=== PATIENT | male | born 1940 | race Hispanic/Latino ===

== ENCOUNTER 2021-08-01 15:47 | Emergency (ER) | payer MEDICARE ==
[~2021-08-01 15:47] MED LIST: AMLO-257 PO; CARV25TA77 PO; FURO40TA5 PO; GLIP2.5T2 PO; SIMV80TA91 PO; SPIR25TA6 PO; TAMS0.4C32 PO; WARF-57 PO
[2021-08-01 17:29] LABS: BASOPHILS % (AUTO) 0.5 % (0.0-5.0); EOSINOPHILS % (AUTO) 0.9 % (0.0-8.0); HEMATOCRIT 40.8 % (42-54); LYMPHOCYTES % (AUTO) 18.5 % (21.0-51.0); MEAN CORPUSCULAR HEMOGLOBIN 29.4 pg (27.0-33.0); MEAN CORPUSCULAR HGB CONC 32.6 g/dL (32.0-36.0); MEAN CORPUSCULAR VOLUME 90.1 fL (79-99); MONOCYTES % (AUTO) 11.5 % (3.0-13.0); NEUTROPHILS % (AUTO) 68.2 % (40.0-77.0); PLATELET COUNT (AUTO) 276 K/uL (130-400); RED BLOOD CELL COUNT(AUTO) 4.53 MIL/uL (4.50-6.20); RED CELL DISTRIBUTION WIDTH 12.2 % (11.0-15.5); WHITE BLOOD COUNT (AUTO) 7.9 K/uL (4.8-10.8)
[2021-08-01 17:42] LABS: CREATININE 1.4 mg/dL (0.5-1.5); POTASSIUM 3.7 mmol/L (3.5-5.1)
[2021-08-01 17:47] LABS: ALBUMIN 2.6 g/dL (3.5-5.0); BILIRUBIN,TOTAL 1.2 mg/dL (0.2-1.0); TOTAL PROTEIN, SERUM 7.4 g/dL (6.0-8.3); URIC ACID 9.1 mg/dL (2.6-7.2)
[2021-08-01] MEDS ORDERED: ACETAMINOPHEN WITH CODEINE 1 TAB TAB PO ONE (18:00)
[2021-08-01] MEDS ORDERED: ACET1TAB25 PO (18:52)
[2021-08-01 19:00] VITALS: BP 125/71
[2021-08-03] MEDS ORDERED: APIX5TAB PO (00:55)
[2021-08-03] MEDS ORDERED: TAMS-1 PO (00:55)
[2021-08-03] MEDS ORDERED: CARV12.511 PO (00:55)
[2021-08-03] MEDS ORDERED: FURO80TA87 PO (00:55)
== END 2021-08-01 20:08 | disposition home or self-care (01) ==
LOC: EDH 15:51
DX: S80.01XA Contusion of right knee, initial encounter (principal); M10.061 Idiopathic gout, right knee; M25.571 Pain in right ankle and joints of right foot; I11.0 Hypertensive heart disease with heart failure; E11.9 Type 2 diabetes mellitus without complications; E78.00 Pure hypercholesterolemia, unspecified; Z87.891 Personal history of nicotine dependence; Z79.84 Long term (current) use of oral hypoglycemic drugs; Z79.01 Long term (current) use of anticoagulants; Z79.899 Other long term (current) drug therapy; W01.0XXA Fall on same level from slipping, tripping and stumbling without subsequent striking against object, initial encounter; Y93.89 Activity, other specified; Y92.89 Other specified places as the place of occurrence of the external cause; Y99.8 Other external cause status
CPT/HCPCS: 36415; 73562; 73590; 73630; 80053; 84550; 85025; 93926; 93971